=== PATIENT | male | born 1960 | race Caucasian/White ===

== ENCOUNTER 2019-11-17 13:59 | Emergency (ER) | payer OTHER ==
[~2019-11-17] VITALS: Ht 175.3 cm; Wt 102.0 kg
[2019-11-17 14:07] VITALS: BP 152/72
[2019-11-17] MEDS ORDERED: PROPARACAINE OPHTH 0.5%, 15ML EACHEYE ONE (15:00)
[2019-11-17] MEDS ORDERED: FLUORESCEIN OPHTHALMIC 1 MG STRIP EACHEYE ONE (15:00)
--- NOTE | 2019-11-17 15:02 | NUR ---
RV SERVICER: TO ROOM FROM LOBBY
[2019-11-17] MEDS ORDERED: FLUORESCEIN OPHTHALMIC 1 MG STRIP ONE (15:05)
[2019-11-17] MEDS ORDERED: PROPARACAINE OPHTH 0.5%, 15ML ONE (15:05)
--- NOTE | 2019-11-17 16:16 | NUR ---
Patient/Caregiver given discharge instructions and they have confirmed that they understand the instructions. Patient ambulatory with steady gait.
== END 2019-11-17 16:25 | disposition home or self-care (01) ==
LOC: ED 15:50
DX: H54.3 Unqualified visual loss, both eyes (principal); H57.13 Ocular pain, bilateral; Z59.0 Homelessness
CPT/HCPCS: 99283